=== PATIENT | male | born 1975 | race Caucasian/White ===

== ENCOUNTER 2022-09-02 15:21 | Observation (INO) | payer BC ==
[~2022-09-02] VITALS: Ht 188 cm; Wt 140.0 kg
--- NOTE | 2022-09-02 20:48 | EKG ---
[facility] [address] [facility] [place], [place] [address] Signed Normal sinus rhythm Normal ECG No previous ECGs available Confirmed by JORDIN PARKER MD [id number] on 09/02/2022 8:48:33 PM Electronically Signed By: JORDIN PARKER MD 09/02/222047 PATIENT NAME: PERLA KING Electrocardiogram DATE OF : 75 PHYSICIAN: JORDIN PARKER MD REPORT #: [id number] REPORT IS CONFIDENTIAL AND NOT TO BE RELEASED WITHOUT AUTHORIZATION
== END 2022-09-03 12:20 | disposition home or self-care (01) ==
LOC: ED 15:21 → MS 15:23
PROVIDERS: ADMIT Internal Medicine; ATTEND Internal Medicine
DX: R20.0 Anesthesia of skin (principal); R20.2 Paresthesia of skin; Z20.822 Contact with and (suspected) exposure to COVID-19; Z82.49 Family history of ischemic heart disease and other diseases of the circulatory system
CPT/HCPCS: 36415; 70450; 70496; 70498; 70551; 71045; 80048; 80053; 80061; 85025; 87502; 93005; 93010; 96372; 97161; G0378; J1650; J7030; Q9967; U0003